=== PATIENT | female | born 1975 | race Caucasian/White ===

== ENCOUNTER 2021-11-28 14:17 | Inpatient (IN) | payer OTHER, SELFPAY ==
[2021-11-28] VITALS (11 sets, daily range): BP systolic 122–149; BP diastolic 77–100; PULSE 64–97; RESP 13–24; TEMP 36.8–36.9; O2SAT 88–96; BMI 48.2; BMI 50.3
--- NOTE | 2021-11-28 14:24 | ECG_ITS ---
APPROVED REPORT Exam: Resting ECG HR:92 bpm ECG Measurements Heart Rate 92 AXES VA 177 P 53 QRSd 88 QRS 12 QT 326 T 47 QTc 376 Conclusion SINUS RHYTHM LOW QRS VOLTAGE IN PRECORDIAL LEADS [QRS DEFLECTION < 1.0 mV IN CHEST LEADS] Late r wave progression BORDERLINE ECG UNCONFIRMED REPORT Electronically signed by : See Page MD 11/28/2021 20:09:52
--- NOTE | 2021-11-28 14:28 | PC.NURSE ---
ED MD at
--- NOTE | 2021-11-28 14:31 | XR_ITS ---
PROCEDURE INFORMATION: Exam: XR Chest Exam date and time: 11/28/2021 2:38 PM Age: 46 years old Clinical indication: Cough TECHNIQUE: Imaging protocol: XR of the chest. Views: 1 view. COMPARISON: No relevant prior studies available. FINDINGS: Subtle bilateral perihilar streak like opacifications are appreciated. Faint ground-glass opacities in the right lung base. Haziness in the left lung is most probably related to superimposition of structures. Remainder of the lungs are clear. No large pleural effusions or pneumothorax. Severe cardiomegaly. Patent central airways. No acute skeletal abnormality or aggressive osseous lesions. IMPRESSION: Vascular congestion with concern for early pulmonary edema or atypical pneumonia.
--- NOTE | 2021-11-28 14:45 | PC.NURSE ---
RESP CALLED FOR ABG
--- NOTE | 2021-11-28 14:50 | PC.NURSE ---
RT At BS
--- NOTE | 2021-11-28 14:57 | HMH.EDSOB ---
ED Disposition Clinical Impression: Acute respiratory failure with hypoxia Community acquired pneumonia Qualifiers: Laterality: unspecified laterality Qualified Code(s): J18.9 - Pneumonia, unspecified organism Disposition: Admitted As Inpatient Condition on Discharge: Fair Referrals: Thom Hatch RN [Primary Care Provider] - - Critical Care Critical Care Time: No Attestation: On 11/28/21, the high probability of a clinically significant, sudden or life threatening deterioration of the following system(s) required my full and direct attention, intervention and personal management. The time I documented below is in addition to time spent performing reported procedures but includes the following listed in this critical care notation. Medical Decision Making - Medical Records Medical records reviewed: Yes: I reviewed the patient's medical records. - Xavier Inquiry Pt receiving controlled substance: No Vital Signs: 11/28/21 14:17 11/28/21 14:30 11/28/21 15:00 Temperature 98.3 F Temperature Source Oral Pulse Rate 91 H 93 H Pulse Rate [Left Radial] 97 H Respiratory Rate 24 16 13 Blood Pressure 131/83 136/83 Blood Pressure [Right Arm] 149/100 H Blood Pressure Mean [Right Arm] 116 Blood Pressure Source Automatic Cuff Automatic Cuff Blood Pressure Source [Right Arm] Automatic Cuff Blood Pressure Position Sitting Sitting Blood Pressure Position [Right Arm] Sitting 02 Sat by Pulse Oximetry 88 L 93 L 95 Oxygen Delivery Method Room Air Nasal Cannula Nasal Cannula Oxygen Flow Rate (LPM) 2 2 11/28/21 15:30 11/28/21 16:25 11/28/21 16:57 Temperature Temperature Source Pulse Rate 79 75 77 Pulse Rate [Left Radial] Respiratory Rate 23 22 21 Blood Pressure 127/83 122/82 134/96 H Blood Pressure [Right Arm] Blood Pressure Mean [Right Arm] Blood Pressure Source Automatic Cuff Automatic Cuff Automatic Cuff Blood Pressure Source [Right Arm] Blood Pressure Position Sitting Supine Supine Blood Pressure Position [Right Arm] 02 Sat by Pulse Oximetry 94 L 93 L 95 Oxygen Delivery Method Nasal Cannula Room Air Room Air Oxygen Flow Rate (LPM) 2 11/28/21 17:14 Temperature Temperature Source Pulse Rate 83 Pulse Rate [Left Radial] Respiratory Rate Blood Pressure Blood Pressure [Right Arm] Blood Pressure Mean [Right Arm] Blood Pressure Source Blood Pressure Source [Right Arm] Blood Pressure Position Blood Pressure Position [Right Arm] 02 Sat by Pulse Oximetry Oxygen Delivery Method Oxygen Flow Rate (LPM) - Lab Data Lab Results 11/28/21 14:40: PT 10.9, INR 0.96, APTT 20.8 L 11/28/21 14:40: Sodium 141, Potassium 3.9, Chloride 104, Carbon Dioxide 31 H, Anion Gap 9.9, BUN 13, Creatinine 0.70, Estimated Creat Clear 74, Estimated GFR 89, Est GFR ( Amer) 108, Glucose 109 H, Calcium 9.3, Total Bilirubin 0.9, AST 61 H, ALT 70, Alkaline Phosphatase 118, Troponin I < 0.01, NT-Pro-B Natriuret Pep 41.9, Total Protein 7.4, Albumin 4.3, Globulin 3.1, Albumin/Globulin Ratio 1.4, TSH 3.28 11/28/21 14:56: Specimen Source Left radial, O2 % 2 lnc, ABG pH 7.40, ABG pCO2 47.8 H, ABG pO2 101.1 H, ABG HCO3 28.6 H, ABG Total CO2 30.1 H, ABG O2 Saturation 98, ABG Base Excess 3.7 H, Mike Test Acceptable 11/28/21 15:03: WBC 7.7, RBC 4.55, Hgb 13.8, Hct 43.2, MCV 95.1, MCH 30.4, MCHC 32.0, RDW 14.0, Plt Count 274, MPV 8.7, Neut % (Auto) 62.5, Lymph % (Auto) 27.3, [place] % (Auto) 4.7, Eos % (Auto) 3.0, Baso % (Auto) 2.4 H, Neut # (Auto) 4.8, Lymph # (Auto) 2.1, [place] # (Auto) 0.4, Eos # (Auto) 0.2, Baso # (Auto) 0.2 11/28/21 15:38: Lactate 1.6 11/28/21 15:38: SARS-CoV-2 (PCR) Not detected, Influenza A Untype (PCR) Not detected, Influenza Type B (PCR) Not detected Result diagrams: 11/28/21 15:03 11/28/21 14:40 Orders (Tests/Meds): ED MEDICATIONS Generic Name Dose Route Start Last Admin Trade Name Freq PRN Reason Stop Dose Admin Ceftriaxone Sodium 1 gm/ 50 mls @ 100 mls/hr
[2021-11-28 14:59] LABS: ABG Base Excess 3.7 mmol/L (-2.4-2.3); ABG HCO3 28.6 mmhg (22.0-26.0); ABG Oxygen Saturation 98 % (90-100); ABG PCO2 47.8 mmhg (35.0-45.0); ABG PO2 101.1 mmhg (80-100); ABG TCO2 30.1 mmhg (23-27); Allen's Test Acceptable; Oxygen 2 LNC %
[2021-11-28 14:59] LABS: Chloride 104 mmol/L (98-107); Potassium 3.9 mmoL/L (3.5-5.1); Sodium 141 mmol/L (136-145)
[2021-11-28 15:00] LABS: Source Left Radial
[2021-11-28 15:02] LABS: Alanine Aminotransferase 70 U/L (12-78); Albumin Level 4.3 g/dl (3.5-5.0); Albumin/Globulin Ratio 1.4 (1.1-1.8); Alkaline Phosphatase 118 U/L (38-126); Anion Gap 9.9 mEq/L (5-15); Aspartate Amino Transferase 61 U/L (14-36); Bilirubin,Total 0.9 mg/dl (0.2-1.3); Blood Urea Nitrogen 13 mg/dl (7-17); Carbon Dioxide 31 mmol/L (22.0-30.0); Creatinine Clearance Estimated 74 mL/min (50-200); Estimated Glomerular Filt Rate 89 ml/min (>60); GFR (African American) 108 ML/MIN (>60); Globulin 3.1 g/dL (1.3-3.2); Total Protein,Serum 7.4 g/dl (6.3-8.2)
[2021-11-28 15:03] LABS: Calcium 9.3 mg/dl (8.4-10.2); Glucose 109 mg/dl (74-100)
[2021-11-28 15:12] LABS: NT Pro Brain Natriuretic Pep. 41.9 pg/mL (0-125)
[2021-11-28 15:18] LABS: Troponin I < 0.01 ng/ml (0.00-0.034)
[2021-11-28 15:23] LABS: Basophils # 0.2 K/mm3 (0-0.2); Basophils % 2.4 % (0.1-2.0); Eosinophils # 0.2 K/mm3 (0.0-0.4); Hematocrit 43.2 % (37.0-47.0); Hemoglobin 13.8 g/dL (12.2-16.2); Lymphocytes # 2.1 K/mm3 (0.7-4.5); Lymphocytes % 27.3 % (10-50); Mean Corpuscular Hemoglobin 30.4 pg (27.0-31.2); Mean Corpuscular Volume 95.1 fl (81-99); Mean Platelet Volume 8.7 fl (7.4-10.4); Monocytes # 0.4 K/mm3 (0.1-1.0); Monocytes % 4.7 % (1.7-9.3); Neutrophils # 4.8 K/mm3 (1.8-7.8); Neutrophils % 62.5 % (37.0-80.0); Platelet Count 274 K/mm3 (142-424); Red Blood Count 4.55 M/mm3 (4.20-5.40); White Blood Count 7.7 K/mm3 (4.8-10.8)
[2021-11-28 15:26] LABS: Activated Partial Thrombo Time 20.8 seconds (22.8-30.6); INR 0.96 (0.9-1.1); Prothrombin Time 10.9 seconds (10.1-12.5)
[2021-11-28 15:33] LABS: Thyroid Stimulating Hormone 3.28 uIU/mL (0.465-4.68)
--- NOTE | 2021-11-28 15:39 | PC.NURSE ---
Lactic and Covid swab sent to lab
[2021-11-28 15:46] LABS: Coronavirus 19, PCR Not Detected (NotDetected); Influenza A, PCR Not Detected (NotDetected); Influenza B, PCR Not Detected (NotDetected)
[2021-11-28 15:54] LABS: Lactic Acid 1.6 mmol/L (0.7-2.1)
--- NOTE | 2021-11-28 17:45 | PC.NURSE ---
paged for pt
--- NOTE | 2021-11-28 18:13 | PC.NURSE ---
Contacted for bed assignment
--- NOTE | 2021-11-28 18:42 | PC.NURSE ---
attempted to call back for report at [phone] staff unavailable at this time, will return call.
--- NOTE | 2021-11-28 18:54 | PC.NURSE ---
report called to Debbie Camacho RN
--- NOTE | 2021-11-28 18:55 | PC.NURSE ---
received report at this time.
--- NOTE | 2021-11-28 18:58 | PC.NURSE ---
Updated pt about poc
[2021-11-28 19:22] LABS: Troponin I < 0.01 ng/ml (0.00-0.034)
--- NOTE | 2021-11-28 19:31 | PC.NURSE ---
pt arrived to floor from ed @ 1930
[2021-11-28 23:04] LABS: Troponin I < 0.01 ng/ml (0.00-0.034)
[2021-11-29] VITALS (15 sets, daily range): BP systolic 100–139; BP diastolic 55–92; PULSE 69–85; RESP 14–20; TEMP 36.5–37; O2SAT 92–97
--- NOTE | 2021-11-29 04:23 | PC.NURSE ---
No acute changes this shift. Pt is currently on 2L O2 NC. No complaints stated. Pt has ambulated to BR without any difficulty with standby assist while on O2. VSS. Medications administered per mar. Will continue to monitor.
[2021-11-29 05:58] LABS: Basophils # 0.1 K/mm3 (0-0.2); Basophils % 0.9 % (0.1-2.0); Eosinophils # 0.3 K/mm3 (0.0-0.4); Eosinophils % 4.1 % (0.1-12.0); Hematocrit 42.9 % (37.0-47.0); Hemoglobin 13.6 g/dL (12.2-16.2); Lymphocytes # 1.6 K/mm3 (0.7-4.5); Lymphocytes % 23.8 % (10-50); Mean Corpuscular HGB Conc 31.7 g/dL (31.8-35.4); Mean Corpuscular Hemoglobin 30.9 pg (27.0-31.2); Mean Corpuscular Volume 97.5 fl (81-99); Mean Platelet Volume 8.9 fl (7.4-10.4); Monocytes # 0.4 K/mm3 (0.1-1.0); Monocytes % 6.2 % (1.7-9.3); Neutrophils # 4.5 K/mm3 (1.8-7.8); Platelet Count 267 K/mm3 (142-424); White Blood Count 6.9 K/mm3 (4.8-10.8)
[2021-11-29 06:19] LABS: Anion Gap 9.2 mEq/L (5-15); Blood Urea Nitrogen 10 mg/dl (7-17); Calcium 8.6 mg/dl (8.4-10.2); Carbon Dioxide 33 mmol/L (22.0-30.0); Chloride 102 mmol/L (98-107); Creatinine Clearance Estimated 65 mL/min (50-200); Estimated Glomerular Filt Rate 77 ml/min (>60); GFR (African American) 93 ML/MIN (>60); Glucose 102 mg/dl (74-100); Potassium 4.2 mmoL/L (3.5-5.1); Sodium 140 mmol/L (136-145)
--- NOTE | 2021-11-29 07:50 | P.CONPHA_ITS ---
[facility] Pharmacy VTE Monitoring - Patient Demographics Admission date: 11/29/21 Report Date: 11/29/21 Time: 07:50 Allergies/Adverse Reactions: Patient Allergies No Known Allergies Allergy (Unverified 11/29/21 07:39) Height: 1.55 m Weight: 120.882 kg Patient Problems: Current Active Problems Community acquired pneumonia (Acute) Acute respiratory failure with hypoxia (Acute) - VTE Risk Labs: VTE Related Lab Results Hgb 13.6 g/dL (12.2-16.2) 11/29/21 05:28 Hct 42.9 % (37.0-47.0) 11/29/21 05:28 Plt Count 267 K/mm3 (142-424) 11/29/21 05:28 PT 10.9 seconds (10.1-12.5) 11/28/21 14:40 INR 0.96 (0.9-1.1) 11/28/21 14:40 APTT 20.8 seconds (22.8-30.6) L 11/28/21 14:40 BUN 10 mg/dl (7-17) 11/29/21 05:28 Creatinine 0.80 mg/dl (0.52-1.04) 11/29/21 05:28 Estimated Creat Clear 65 mL/min (50-200) 11/29/21 05:28 Was VTE Risk Assessment Performed: Yes VTE Risk Level: Low Risk Clinical Trial Participant: No - Prophylaxis VTE Prophylaxis Ordered?: Yes Types of VTE Prophylaxis: TEDS Knee High, Pharmacological Pharmacologic Type: Enoxaparin
--- NOTE | 2021-11-29 08:19 | CA_ITS ---
APPROVED REPORT EXAM: Comprehensive 2D, Doppler, and color-flow Echocardiogram Manager Publishing: Arlette Padilla RVT Ht: 5 ft 1 in Wt: 266lbs BSA: 2.13 BP: 134/96 mmHg Indications: CARDIOMEGALY,SOA,PNEUMONIA,OBESITY TDS-PT BODY HABITUS LIMITED WINDOWS 2D Dimensions LVOT 2.13 cm (M/F) 1.5-2.5 M-Mode Dimensions RVDd 1.37 cm (0.9-2.6) LA Diam 2.99 cm (1.9-4.0) LVDd 3.83 cm (3.5-5.7) Ao Diam 2.86 cm (2.0-3.7) LVDs 2.09 cm (3.5-5.7) IVSd 1.90 cm (0.6-1.1) PWd 1.18 cm (0.6-1.1) EF (Teich) 77.50% FS 45.40% EDV (Teich) 63.10 mL ESV (Teich) 14.20 mL LV Diastology E Decel Time 150.00 (160-240 msec) E/A Ratio 1.6 MED E' 10.00 (< 7 cm/sec) E'/MED E' Ratio 11.61 (>14) LAT E' 8.90 (<10 cm/sec) E/LAT E' Ratio 13.04 (>14) Aortic Valve AO Peak GR. 7.70 mmHg Mitral Valve MV E Max Bashir. 116.00 (40-130 cm/s) MV A Velocity 72.00 (40-130 cm/s) E/A Ratio 1.61 MV Decel. Time 150.00 (160-240 ms) MV PHT 44.00 ms Pulmonary Valve PV Peak Velocity 82.00 (50-150 cm/s) Left Ventricle Technically difficult and poor study because of the patient factors and poor acoustic windows. Left atrium is mildly enlarged, left ventricle is normal size, estimated ejection fraction 55% with no regional wall motion abnormality, diastolic parameters are inconclusive. Right Ventricle Right atrium and right ventricle are mildly enlarged with normal contractility. Aortic Valve Aortic valve is minimally thickened and fibrosed there is no aortic stenosis or aortic insufficiency. Mitral Valve Mitral valve is grossly normal there is trace mitral regurgitation. Tricuspid Valve Tricuspid valve grossly normal, there is trace tricuspid regurgitation, tricuspid regurgitation jet velocity is inadequate for calculation of the right ventricular systolic pressure. Pulmonic Valve Pulmonic valve is poorly visualized. Great Vessels Aortic root is normal size. Inferior vena cava is poorly visualized. Pericardium No significant pericardial effusion noted. Conclusion 1. Normal left ventricular size with preserved left ventricular systolic function, estimated ejection fraction 55% with no regional wall motion abnormality, diastolic parameters are inconclusive. Technically difficult study because of the patient factors and poor acoustic windows. 2. Trace mitral and tricuspid regurgitation. 3. No significant pericardial effusion noted. 4. Inferior vena cava is poorly visualized. Electronically signed by : Alen Mcdonald MD 11/29/2021 11:53:43
--- NOTE | 2021-11-29 09:15 | HMH.HP ---
*Admission Date: 11/29/21 *Chief complaint: soa *History of present illness: 46-year-old female presented to the emergency department with shortness of breath since Monday. Pt states she has been battling with pneumonia for the last few months. Patient states since Monday she has been having worsening shortness of breath on exertion. She had a mild nonproductive cough. Denies any associated chest pain or palpitations. No fevers or chills. No headache or change in vision. No focal weakness. No abdominal pain or vomiting. Pt was admitted for pneumonia and CHF, for cardiology and pulmonology consults. [facility] History I have reviewed the patient's past medical history: Yes Medical History: Reports:: Hyperlipidemia, Hypertension *Have you ever received a pneumonia vaccine?: Yes *Have you received a flu vaccine this season?: No Other Surgeries: Yes: , Hysterectomy-Partial - *Social History Smoking Status: Current every day smoker Alcohol Intake: never *Occupational Status:: employed *Travel in the last 8 weeks: None Family Hx:: Asthma, Cancer, Diabetes, Heart Attack, Hyperlipidemia, Hypertension, Thyroid Disorder, Substance abuse, Alcoholism Review of Systems - Constitutional Denies body ache(s) - Eyes Denies blurry vision - ENT Denies difficulty swallowing - *Cardiovascular Reports shortness of breath with activity, Denies chest pain with activity - *Respiratory Reports cough, Reports shortness of breath with activity - *Gastrointestinal Denies belching - *Genitourinary Denies abnormal periods - *Musculoskeletal Denies joint pain - Integumentary/Breasts Denies rash - *Neurologic Denies headache(s) - Psychiatric Denies anxiety - Endocrine Denies flushing - Hematologic/Lymphatic Denies enlarged lymph nodes - Allergic/Immunologic Denies lip swelling Meds Home Medications Medication Instructions Recorded Confirmed Type Albuterol Sulfate [Proair 90 mcg IH Q6 PRN 11/28/21 11/28/21 History Digihaler] Escitalopram Oxalate [Lexapro] 10 mg PO DAILY 11/28/21 11/28/21 History Fluticasone Propion/Salmeterol 2 puffs IH BID 11/28/21 11/28/21 History [Advair Hfa 115-21 Mcg Inhaler] Levothyroxine Sodium [Synthroid 125 mcg PO DAILY 11/28/21 11/28/21 History 125mcg (0.125mg) tablet] Montelukast Sodium 10 mg PO HS 11/28/21 11/28/21 History lisinopriL [Lisinopril] 10 mg PO DAILY 11/28/21 11/28/21 History Allergies Allergy/AdvReac Type Severity Reaction Status Date / Time No Known Allergies Allergy Unverified 11/29/21 07:39 Exam Vital signs and Labs for Last 24 Hours: Temp Pulse Resp BP Pulse Ox 98.6 F 71 16 114/69 96 11/29/21 08:00 11/29/21 08:00 11/29/21 08:00 11/29/21 08:00 11/29/21 08:00 Laboratory Results - last 24 hr 11/28/21 14:40: PT 10.9, INR 0.96, APTT 20.8 L 11/28/21 14:40: Sodium 141, Potassium 3.9, Chloride 104, Carbon Dioxide 31 H, Anion Gap 9.9, BUN 13, Creatinine 0.70, Estimated Creat Clear 74, Estimated GFR 89, Est GFR ( Amer) 108, Glucose 109 H, Calcium 9.3, Total Bilirubin 0.9, AST 61 H, ALT 70, Alkaline Phosphatase 118, Troponin I < 0.01, NT-Pro-B Natriuret Pep 41.9, Total Protein 7.4, Albumin 4.3, Globulin 3.1, Albumin/Globulin Ratio 1.4, TSH 3.28 11/28/21 14:56: Specimen Source Left radial, O2 % 2 lnc, ABG pH 7.40, ABG pCO2 47.8 H, ABG pO2 101.1 H, ABG HCO3 28.6 H, ABG Total CO2 30.1 H, ABG O2 Saturation 98, ABG Base Excess 3.7 H, Mike Test Acceptable 11/28/21 15:03: WBC 7.7, RBC 4.55, Hgb 13.8, Hct 43.2, MCV 95.1, MCH 30.4, MCHC 32.0, RDW 14.0, Plt Count 274, MPV 8.7, Neut % (Auto) 62.5, Lymph % (Auto) 27.3, Teller % (Auto) 4.7, Eos % (Auto) 3.0, Baso % (Auto) 2.4 H, Neut # (Auto) 4.8, Lymph # (Auto) 2.1, Teller # (Auto) 0.4, Eos # (Auto) 0.2, Baso # (Auto) 0.2 11/28/21 15:38: Lactate 1.6 11/28/21 15:38: SARS-CoV-2 (PCR) Not detected, Influenza A Untype (PCR) Not detected, Influenza Type B (PCR) Not detected 11/28/21 18:45: Troponin
--- NOTE | 2021-11-29 09:23 | HMH.PULMCON ---
*Admission Date: 11/29/21 *Reason for consult:: Acute hypoxic respiratory failure *History of present illness: Ms. Partida is a 46-year-old female history of asthma currently on Advair HFA 110 at home along with albuterol on as-needed basis, no recent known exacerbations presented to the clinic with worsening respiratory distress with cough and productive phlegm and pulmonary was called for further management. He also states that she explained episode of pneumonia in May and since then her respiratory status never returned to baseline. Not using any oxygen at home [facility] History Medical History: Reports:: Hyperlipidemia, Hypertension *Have you ever received a pneumonia vaccine?: Yes *Have you received a flu vaccine this season?: No Other Surgeries: Yes: , Hysterectomy-Partial - *Social History Last grade of school completed: Some college Smoking Status: Smoker, status unknown Alcohol Intake: never Alcohol Intake Frequency:: other Substance Use Type: other *Occupational Status:: employed *Travel in the last 8 weeks: None Family Hx:: Asthma, Cancer, Diabetes, Heart Attack, Hyperlipidemia, Hypertension, Thyroid Disorder, Substance abuse, Alcoholism ROS - Cons Reports chills - Eyes Denies change in vision - ENT Denies bleeding gums - Card Reports shortness of breath, Reports shortness of breath with activity - Resp Respiratory: Reports change in phlegm color, Reports chest congestion, Reports cough, Reports dyspnea on exertion, Reports excessive phlegm production - GI Gastrointestingal: Denies: abdominal pain - [place] Musculoskeletal: Denies back pain - Psych Denies thoughts of hurting/killing others, Denies thoughts of hurting/killing yourself Meds Home Medications Medication Instructions Recorded Confirmed Type Albuterol Sulfate [Proair 90 mcg IH Q6 PRN 11/28/21 11/28/21 History Digihaler] Escitalopram Oxalate [Lexapro] 10 mg PO DAILY 11/28/21 11/28/21 History Fluticasone Propion/Salmeterol 2 puffs IH BID 11/28/21 11/28/21 History [Advair Hfa 115-21 Mcg Inhaler] Levothyroxine Sodium [Synthroid 125 mcg PO DAILY 11/28/21 11/28/21 History 125mcg (0.125mg) tablet] Montelukast Sodium 10 mg PO HS 11/28/21 11/28/21 History lisinopriL [Lisinopril] 10 mg PO DAILY 11/28/21 11/28/21 History Budesonide [Pulmicort 0.5mg/2mL 0.5 mg IH BIDRT 30 Days #120 each 11/30/21 Rx neb] levoFLOXacin [Levofloxacin 750MG 750 mg PO DAILY 6 Days #6 tab 11/30/21 Rx Tablet*] predniSONE [Prednisone 20mg 40 mg PO DAILY 18 Days #36 tab 11/30/21 Rx Tab] Allergies Allergy/AdvReac Type Severity Reaction Status Date / Time No Known Allergies Allergy Unverified 11/29/21 07:39 Exam - Constitutional Constitutional:: Present: no acute distress. Absent: comfortable - HENMT Exam HENMT: Present: normocephalic - Eye Exam Eyes:: Present: normal appearance both eyes and related structures - Neck Exam Neck:: Present: normal visual inspection - Respiratory Exam Respiratory:: Present: able to speak in complete sentences, no respiratory distress, wheezing. Absent: crackles - Cardiovascular Exam Cardiac:: Present: S1, S2 - GI Exam GI:: Present: soft - Skin Exam Skin: Present: warm - Neurological Exam Neurological: Present: alert, awake - Extremities Exam Extremities: Present: no cyanosis, no clubbing, no edema - Psychiatric Exam Psychiatric: Present: affect normal Internal Medicine - CN: Reslt - Labs CBC & Chem 7: 11/29/21 05:28 11/29/21 05:28 Labs: Short CBC 11/28/21 11/29/21 Range/Units 15:03 05:28 WBC 7.7 6.9 (4.8-10.8) K/mm3 Hgb 13.8 13.6 (12.2-16.2) g/dL Hct 43.2 42.9 (37.0-47.0) % Plt Count 274 267 (142-424) K/mm3 BMP 11/28/21 11/29/21 14:40 05:28 Sodium 141 140 Potassium 3.9 4.2 Chloride 104 102 Carbon Dioxide 31 H 33 H BUN 13 10 Creatinine 0.70 0.80 Glucose 109 H 102 H Calcium 9.3 8.6 Cardiac Enzy
--- NOTE | 2021-11-29 09:38 | HMH.PHAINT ---
VERIFIED HOME MEDICATION LIST USING WITH PATIENT AND LIST FROM [facility]
--- NOTE | 2021-11-29 11:01 | CT_ITS ---
FINAL REPORT TECHNIQUE: Then section axial CT images of the chest were obtained with contrast. Three-D reformatted images were also obtained.This study was performed with techniques to keep radiation doses as low as reasonably achievable (ALARA). Individualized dose reduction techniques using automated exposure control or adjustment of mA and/or kV according to the patient''s size were employed. CLINICAL HISTORY: Hypoxia FINDINGS: There is no evidence of pulmonary embolism. There is no evidence of thoracic aortic aneurysm or dissection. There is no evidence of mediastinal or hilar mass or adenopathy. There is no evidence of pulmonary mass or suspicious nodule. There are widespread ground-glass opacities, may represent edema. There is mild right base atelectasis and small right effusion. Limited images of the upper abdomen are unremarkable. IMPRESSION: No evidence of pulmonary embolism. Widespread ground-glass opacities, may represent edema. Right base atelectasis and small right effusion. Reviewed, Interpreted and Dictated by Shin Leahy III, MD Transcribed by Adriana Hill Authenticated by Shin eLahy III, MD on 11/29/2021 02:01:[address] [facility]
[2021-11-29 11:12] LABS: Adenovirus,PCR Not Detected (NotDetected); Bordetella Pertussis Not Detected (NotDetected); Chlamydophila Pneumoniae, PCR Not Detected (NotDetected); Coronavirus 229E Not Detected (NotDetected); Coronavirus NL63 Not Detected (NotDetected); Coronavirus OC43 Not Detected (NotDetected); Coronovirus HKU1,PCR Not Detected (NotDetected); Human Metapneumovirus Not Detected (NotDetected); Influenza A, PCR Not Detected (NotDetected); Influenza AH1, 2009 Not Detected (NotDetected); Influenza AH1, PCR Not Detected (NotDetected); Influenza AH3,PCR Not Detected (NotDetected); Influenza B, PCR Not Detected (NotDetected); Mycoplasma Pneumoniae, PCR Not Detected (NotDetected); Parainfluenza 1, PCR Not Detected (NotDetected); Parainfluenza 2, PCR Not Detected (NotDetected); Parainfluenza 3, PCR Not Detected (NotDetected); Parainfluenza 4, PCR Not Detected (NotDetected); Respiratory Syncytial Virus Not Detected (NotDetected); Rhinovirus/Enterovirus Not Detected (NotDetected)
--- NOTE | 2021-11-29 11:30 | XR_ITS ---
FINAL REPORT CLINICAL HISTORY: pulmonary edema, infiltrate, cardiomegaly COMPARISON: 12/07/2021 FINDINGS: TWO-VIEW CHEST The heart size is normal. The mediastinum is normal. There are pulmonary opacities, may represent edema or pneumonia. There is no pneumothorax. IMPRESSION: Pulmonary opacities, may represent edema or pneumonia. Reviewed, Interpreted and Dictated by Shin Leahy III, MD Transcribed by Adriana Hill Authenticated by Shin Leahy III, MD on 11/29/2021 02:01:[address] [facility]
--- NOTE | 2021-11-29 11:31 | HMH.CNCARD ---
History of Present Illness Consult date: 11/29/21 Requesting physician: Glenn Ty Consult reason: shortness of breath Chief complaint: SOA Additional Medical History:: 1. Hypertension, treated for about 5 years 2. Hyperlipidemia, treated for 1 to 2 years 3. Obesity 4. History of COVID infection, July 2021 5. History of pneumonia, 05/2021 6. Possible cardiomegaly on chest x-ray, 11/28/2021 A. Echocardiogram, 11/29/2021, official report pending but ejection fraction estimated about 60% History of present illness: 46-year-old white female admitted through the ER for increasing shortness of breath over the last few days with hypoxia on room air in the ER. Patient has been treated with supplemental oxygen and started on antibiotic therapy with pulmonary consulted. Patient has recently had a sleep study and is awaiting results of that test. Chest x-ray (portable) was read as showing severe cardiomegaly and cardiology was consulted for evaluation. Preliminary echocardiogram shows preserved ejection fraction. Official report is pending. Patient denies any cardiac history except for hypertension. EKG is sinus rhythm with low voltage and poor R wave progression anteriorly. [facility] History Medical History: Reports:: Hyperlipidemia, Hypertension *Have you ever received a pneumonia vaccine?: Yes *Have you received a flu vaccine this season?: No Other Surgeries: Yes: , Hysterectomy-Partial - *Social History Smoking Status: Never smoker Alcohol Intake: never *Occupational Status:: employed *Travel in the last 8 weeks: None Family Hx:: Asthma, Cancer, Diabetes, Heart Attack, Hyperlipidemia, Hypertension, Thyroid Disorder, Substance abuse, Alcoholism Meds Home Medications Medication Instructions Recorded Confirmed Type Albuterol Sulfate [Proair 90 mcg IH Q6 PRN 11/28/21 11/28/21 History Digihaler] Escitalopram Oxalate [Lexapro] 10 mg PO DAILY 11/28/21 11/28/21 History Fluticasone Propion/Salmeterol 2 puffs IH BID 11/28/21 11/28/21 History [Advair Hfa 115-21 Mcg Inhaler] Levothyroxine Sodium [Synthroid 125 mcg PO DAILY 11/28/21 11/28/21 History 125mcg (0.125mg) tablet] Montelukast Sodium 10 mg PO HS 11/28/21 11/28/21 History lisinopriL [Lisinopril] 10 mg PO DAILY 11/28/21 11/28/21 History Allergies Allergy/AdvReac Type Severity Reaction Status Date / Time No Known Allergies Allergy Unverified 11/29/21 07:39 Exam Vital signs and Labs for Last 24 Hours: Temp Pulse Resp BP Pulse Ox 98.6 F 85 20 114/69 96 11/29/21 08:00 11/29/21 09:15 11/29/21 09:15 11/29/21 08:00 11/29/21 08:00 Laboratory Results - last 24 hr 11/28/21 14:40: PT 10.9, INR 0.96, APTT 20.8 L 11/28/21 14:40: Sodium 141, Potassium 3.9, Chloride 104, Carbon Dioxide 31 H, Anion Gap 9.9, BUN 13, Creatinine 0.70, Estimated Creat Clear 74, Estimated GFR 89, Est GFR ( Amer) 108, Glucose 109 H, Calcium 9.3, Total Bilirubin 0.9, AST 61 H, ALT 70, Alkaline Phosphatase 118, Troponin I < 0.01, NT-Pro-B Natriuret Pep 41.9, Total Protein 7.4, Albumin 4.3, Globulin 3.1, Albumin/Globulin Ratio 1.4, TSH 3.28 11/28/21 14:56: Specimen Source Left radial, O2 % 2 lnc, ABG pH 7.40, ABG pCO2 47.8 H, ABG pO2 101.1 H, ABG HCO3 28.6 H, ABG Total CO2 30.1 H, ABG O2 Saturation 98, ABG Base Excess 3.7 H, Mike Test Acceptable 11/28/21 15:03: WBC 7.7, RBC 4.55, Hgb 13.8, Hct 43.2, MCV 95.1, MCH 30.4, MCHC 32.0, RDW 14.0, Plt Count 274, MPV 8.7, Neut % (Auto) 62.5, Lymph % (Auto) 27.3, Weber % (Auto) 4.7, Eos % (Auto) 3.0, Baso % (Auto) 2.4 H, Neut # (Auto) 4.8, Lymph # (Auto) 2.1, Weber # (Auto) 0.4, Eos # (Auto) 0.2, Baso # (Auto) 0.2 11/28/21 15:38: Lactate 1.6 11/28/21 15:38: SARS-CoV-2 (PCR) Not detected, Influenza A Untype (PCR) Not detected, Influenza Type B (PCR) Not detected 11/28/21 18:45: Troponin I < 0.01 11/28/21 21:43: Troponin I < 0.01 11/29/21 05:28: WBC 6.9, RBC 4.40, Hgb 13.6, Hct 42.9, MCV 97.5, MCH 30.9, MCHC 31.7 L, RDW 14.0, P
[2021-11-30] VITALS: BP 114/61; PULSE 73; PULSE 78; RESP 20; TEMP 36.7; O2SAT 93
--- NOTE | 2021-11-30 01:11 | PC.NURSE ---
pt's sats decreased into 50's with a good pleth on monitor, entered pt's room and woke pt up, sats went back to 96%; asked pt if had sleep apnea and pt said haven't been diagnosed, but recently had sleep study and haven't gotten results yet so probably ; pt has been on 2LNC throughout shift
[2021-11-30 04:00] VITALS: BP 120/81; PULSE 77; PULSE 83; RESP 17; TEMP 36.6; O2SAT 93
[2021-11-30 05:00] VITALS: BMI 50.3
[2021-11-30 06:04] VITALS: PULSE 72; PULSE 76; O2SAT 92
[2021-11-30 08:00] VITALS: BP 112/71; PULSE 73; RESP 16; TEMP 36.6; O2SAT 93
--- NOTE | 2021-11-30 10:20 | HMH.PULMPN ---
Internal Medicine - PN: Subj *Date: 11/30/21 *Time: 10:20 Interval history: No acute respiratory vents overnight. Patient admits improvement in her symptoms Exam - Constitutional Constitutional:: Present: no acute distress, comfortable - HENMT Exam HENMT: Present: normocephalic - Eye Exam Eyes:: Present: normal appearance both eyes and related structures - Neck Exam Neck:: Present: normal visual inspection - Respiratory Exam Respiratory:: Present: able to speak in complete sentences, no respiratory distress. Absent: wheezing - Cardiovascular Exam Cardiac:: Present: S1, S2 - GI Exam GI:: Present: soft - Skin Exam Skin: Present: warm, no rash - Neurological Exam Neurological: Present: alert, awake, normal cognition - Extremities Exam Extremities: Present: no cyanosis, no clubbing, no edema Assessment and Plan (1) Acute diastolic (congestive) heart failure Status: Acute Category: Medical Code(s): I50.31 - Acute diastolic (congestive) heart failure (2) Acute respiratory failure with hypoxia Status: Acute Category: Medical Code(s): J96.01 - Acute respiratory failure with hypoxia (3) Community acquired pneumonia Status: Acute Qualifiers: Laterality: unspecified laterality Qualified Code(s): J18.9 - Pneumonia, unspecified organism Category: Medical Code(s): J18.9 - Pneumonia, unspecified organism (4) Hyperlipidemia Status: Acute Category: Medical Code(s): E78.5 - Hyperlipidemia, unspecified (5) Hypertension Status: Acute Category: Medical Code(s): I10 - Essential (primary) hypertension (6) Morbid obesity with BMI of 50.0-59.9, adult Status: Acute Category: Medical Code(s): E66.01 - Morbid (severe) obesity due to excess calories; Z68.43 - Body mass index [BMI] 50.0-59.9, adult - Assessment and plan all Dx Assessment and Plan for all problems:: #Acute hypoxic respiratory failure: #Community-acquired pneumonia: #Atypical pneumonia 46-year-old history of asthma presented worsening respiratory distress. Also concern for sleep apnea recently had a polysomnography testing done ABG on admission no hypoxia, compensated hypercarbia. 7.40, 47.8 and 101.1. No evidence of leukocytosis. Renal function normal. Chest x-ray concerning for light lower lobe pulmonary infiltrate along with hilar adenopathy. Also noted bilateral diffuse patchy/nodular opacities BNP within normal limits. COVID-19 and flu PCR normal. Patient has been initiated on ceftriaxone and doxycycline on admission. Interval update: CTA did not show any evidence of pulmonary embolism, no dense consolidation or effusions are mediastinal/hilar adenopathy. Showed bilateral diffuse groundglass opacities. Echocardiogram EF within normal limits, concern for diastolic dysfunction. Comprehensive respiratory viral panel negative. Auscultation significantly improved with breathing treatments. Continue to remain on 2 L nasal. Plan: -Initiate prednisone 40 mg daily x 14 days. F/U in 10 days in Pulmonary clinic -Continue nasal cannula oxygen supplementation to maintain O2 saturation goal of 89% and above -Continue DuoNebs every 6 hours along with budesonide every 12 scheduled. -Continue ceftriaxone and doxycycline, can be weaned to levofloxacin upon discharge. Sputum less than 10 WBC -Cardiology following receiving IV diuresis this morning. Thank you for involving pulmonary in this patient care. Please arrange home nebulizer prior to discharge. We will follow the patient in pulmonary clinic in 10 days post discharge. We will continue to follow.
--- NOTE | 2021-11-30 10:27 | [facility].PNCARD ---
Subjective Date: 11/30/21 Time: 09:30 Principal diagnosis: SOA Interval history: 46-year-old white female in no acute distress. Sitting in bedside chair initially sleeping. Repeat chest x-ray yesterday showed no evidence of cardiomegaly. CTA of the chest showed no evidence of pulmonary embolus but groundglass opacities noted throughout. Lasix IV was given yesterday with improvement in the patient's shortness of breath. Exam Vital signs and Labs for Last 24 Hours: Temp Pulse Resp BP Pulse Ox 97.9 F 73 16 112/71 93 L 11/30/21 08:00 11/30/21 08:00 11/30/21 08:00 11/30/21 08:00 11/30/21 08:00 Laboratory Results - last 24 hr 11/29/21 11:07: Chlamy pneumoniae PCR Not detected, Adenovirus (PCR) Not detected, B. pertussis DNA (PCR) Not detected, Coronavirus OC43 (PCR) Not detected, Coronavirus HKU1 (PCR) Not detected, Coronavirus 229E (PCR) Not detected, Coronavirus NL63 (PCR) Not detected, Human Metapneumovir PCR Not detected, Influenza A (H1) PCR Not detected, Influ A (H1N1/09) PCR Not detected, Influenza A (H3) PCR Not detected, Influenza Type A (PCR) Not detected, Influenza Type B (PCR) Not detected, M. pneumoniae (PCR) Not detected, Parainfluenza 1 (PCR) Not detected, Parainfluenza 2 (PCR) Not detected, Parainfluenza 3 (PCR) Not detected, Parainfluenza 4 (PCR) Not detected, RSV (PCR) Not detected, Entero/Rhino (PCR) Not detected I & O for Last 24 hours: Intake & Output 11/27/21 11/28/21 11/29/21 11/30/21 11:59 11:59 11:59 11:59 Intake Total 240 / 240 2688 / 2688 Output Total 0 / 0 1000 / 1000 Balance 240 / 240 1688 / 1688 Weight 266 lb 8 oz 266 lb 7.987 oz Microbiology Reports for the Last 24 Hours: Microbiology 11/29/21 12:45 Sputum - Expectorated Sputum Gram Stain - Final - Constitutional no acute distress - *Routine HEENT Exam Head: Present: normocephalic Eye: Present: EOMI, PERRL ENT: Present: mucous membranes moist - *Routine Neck Exam Present: supple. Absent: lymphadenopathy - *Routine Respiratory Exam Present: CTA bilaterally - *Routine Cardiovascular Exam Present: RRR - *Routine Abdominal Exam Present: soft, normoactive bowel sounds. Absent: tenderness - *Routine Extremities Exam Absent: cyanosis, clubbing, edema - *Routine Skin Exam Present: warm. Absent: rash - *Routine Neurological Exam Present: alert, oriented X3 Progress Note: A&P (1) Acute diastolic (congestive) heart failure Status: Acute (2) Acute respiratory failure with hypoxia Status: Acute (3) Community acquired pneumonia Status: Acute (4) Hyperlipidemia Status: Acute (5) Hypertension Status: Acute (6) Morbid obesity with BMI of 50.0-59.9, adult Status: Acute Assessment and Plan for All Diagnoses:: 1. Acute respiratory failure, hypoxia, pneumonia, on antibiotics. Defer to PCP and pulmonary. 2. Possible cardiomegaly on chest x-ray. Repeat non-Portable chest x-ray showed normal cardiac size. 3. Suspected diastolic congestive heart failure. Repeat IV Lasix today. Lisinopril not restarted at this time. Continue to monitor BP for now. 3. Hypertension, controlled at this time off lisinopril. 4. Hyperlipidemia, continue home dose of statin therapy. If patient felt stable for discharge by primary team then would recommend holding lisinopril and monitoring blood pressure at home while giving low-dose Lasix 20 mg and potassium 10 meq daily with BMP in 1 week.
--- NOTE | 2021-11-30 10:33 | HMH.DCSUM ---
General - General Admission date:: 11/28/21 Discharge date: 11/30/21 HPI HPI: 46-year-old female presented to the emergency department with shortness of breath since Monday. Pt states she has been battling with pneumonia for the last few months. Patient states since Monday she has been having worsening shortness of breath on exertion. She had a mild nonproductive cough. Denies any associated chest pain or palpitations. No fevers or chills. No headache or change in vision. No focal weakness. No abdominal pain or vomiting. Pt was admitted for pneumonia and CHF, for cardiology and pulmonology consults. Hospital Course Hospital Course: Cardiology has seen and recommended: 1. Acute respiratory failure, hypoxia, pneumonia, on antibiotics. Defer to PCP and pulmonary. 2. Possible cardiomegaly on chest x-ray, will repeat two-view nonportable chest x-ray for reevaluation. Suspect the patient has an element of diastolic congestive heart failure. We will give a dose of IV Lasix today and assess response. Official echo report is pending, but preliminary shows preserved ejection fraction. I have encouraged weight loss and treatment of her suspected SHARON. 3. Hypertension, controlled at this time. Recommend resuming home dose of lisinopril. 4. Hyperlipidemia, continue home dose of statin therapy. Pulmonary has seen and recommended: Patient has been initiated on ceftriaxone and doxycycline on admission. Interval update: CTA did not show any evidence of pulmonary embolism, no dense consolidation or effusions are mediastinal/hilar adenopathy. Showed bilateral diffuse groundglass opacities. Echocardiogram EF within normal limits, concern for diastolic dysfunction. Comprehensive respiratory viral panel negative. Auscultation significantly improved with breathing treatments. Continue to remain on 2 L nasal. Plan: -Initiate prednisone 40 mg daily x 14 days. F/U in 10 days in Pulmonary clinic -Continue nasal cannula oxygen supplementation to maintain O2 saturation goal of 89% and above -Continue DuoNebs every 6 hours along with budesonide every 12 scheduled. -Continue ceftriaxone and doxycycline, can be weaned to levofloxacin upon discharge. Sputum less than 10 WBC -Cardiology following receiving IV diuresis this morning. Thank you for involving pulmonary in this patient care. Please arrange home nebulizer prior to discharge. We will follow the patient in pulmonary clinic in 10 days post discharge. We will continue to follow. (1) Acute diastolic (congestive) heart failure Has received Lasix IV in the hospital and diuresed appropriately Echocardiogram revealed EF of 55% with possible diastolic heart failure (2) Acute respiratory failure with hypoxia She has received IV steroids, breathing treatments consisting of duo nebs, and budesonide while in the hospital as well as requiring oxygen and will be discharged on home O2. And we will arrange home nebulizer (3) Community acquired pneumonia During her stay she received ceftriaxone and doxycycline IV, she will be discharged on Levofloxacin and prednisone P.O. CTA of chest revealed no pulmonary embolism but did show bilateral diffuse ground glass opacities. Respiratory PCR negative (5) Hypertension She will resume her home dose of lisinopril (6) Morbid obesity with BMI of 50.0-59.9, adult Better food options/portions and exercise discussed as well as healthier food substitutions PLAN: 1. We will discharge home today 2. Levofloxacin x6 days 3. Prednisone x14 days Objective Vital signs: Temp Pulse Resp BP Pulse Ox 97.9 F 73 16 112/71 93 L 11/30/21 08:00 11/30/21 08:00 11/30/21 08:00 11/30/21 08:00 11/30/21 08:00 no acute distress, obese - *Routine HEENT Exam Head: Present: normocephalic Eye: Present: EOMI ENT: Present: mucous membranes moist - *Routine Neck Exam Present: trachea midline. Absent: tracheal deviation - *Routi
--- NOTE | 2021-11-30 10:41 | PC.NURSE ---
RA sat 86%.
[2021-11-30 10:42] VITALS: PULSE 82; PULSE 89; O2SAT 86
--- NOTE | 2021-12-01 16:41 | CARE MANAGER ---
Spoke with patient for follow-up phone interview. Patient states that she is much better and has no acute needs. Patient did not have the number to Dr. Yepez office for follow-up appointment so I did give patient number to call. No further needs at this time.
[2021-12-06 12:53] LABS: Aspergillus fumigatus IgG Negative (Negative); Pigeon Serum Abs Negative (Negative)
[2021-12-08 01:08] LABS: D001-IgE D pteronyssinus <0.10 kU/L (Class 0); D002-IgE D farinae <0.10 kU/L (Class 0); E001-IgE Cat Dander 3.27 kU/L (Class III); E005-IgE Dog Dander 0.42 kU/L (Class I); E072-IgE Mouse Urine <0.10 kU/L (Class 0); G002-IgE Bermuda Grass <0.10 kU/L (Class 0); G006-IgE Timothy Grass <0.10 kU/L (Class 0); I006-IgE Cockroach, German <0.10 kU/L (Class 0); Immunoglobulin E, Total 11 IU/mL (6-495); M001-IgE Penicillium chrysogen <0.10 kU/L (Class 0); M002-IgE Cladosporium herbarum <0.10 kU/L (Class 0); M003-IgE Aspergillus fumigatus <0.10 kU/L (Class 0); M006-IgE Alternaria alternata <0.10 kU/L (Class 0); T001-IgE Maple/Box Elder <0.10 kU/L (Class 0); T003-IgE Common Silver Birch <0.10 kU/L (Class 0); T006-IgE Cedar, Mountain <0.10 kU/L (Class 0); T007-IgE Oak, White <0.10 kU/L (Class 0); T008-IgE Elm, American <0.10 kU/L (Class 0); T010-IgE Walnut <0.10 kU/L (Class 0); T011-IgE Maple Leaf Sycamore <0.10 kU/L (Class 0); T014-IgE Cottonwood <0.10 kU/L (Class 0); T015-IgE Ash, White <0.10 kU/L (Class 0); T022-IgE Pecan, Hickory <0.10 kU/L (Class 0); T070-IgE White Mulberry <0.10 kU/L (Class 0); W001-IgE Ragweed, Short <0.10 kU/L (Class 0); W011-IgE Thistle, Russian <0.10 kU/L (Class 0); W014-IgE Pigweed, Common <0.10 kU/L (Class 0); W018-IgE Sheep Sorrel <0.10 kU/L (Class 0)
== END 2021-11-30 12:26 | disposition home or self-care (01) | DRG 193 ==
LOC: ER 17:48 → 2ND 18:23
PROVIDERS: Internal Medicine Pulmonary Disease; Admitting Provider Emergency Medicine; Emergency Provider Emergency Medicine; Visit Provider Emergency Medicine
DX: J18.9 Pneumonia, unspecified organism (principal); I50.31 Acute diastolic (congestive) heart failure; J96.01 Acute respiratory failure with hypoxia; Z68.43 Body mass index [BMI] 50.0-59.9, adult; I11.0 Hypertensive heart disease with heart failure; E66.01 Morbid (severe) obesity due to excess calories; E78.5 Hyperlipidemia, unspecified; Z86.16 Personal history of COVID-19
CPT/HCPCS: 36415; 71045; 71046; 71275; 80048; 80053; 82785; 82803; 83605; 83880; 84443; 84484; 85025; 85610; 85730; 86003; 86140; 86331; 86602; 86606; 86609; 87070; 87205; 87486; 87581; 87632; 87798; 93005; 93306; 94640; 99285; C9803; J0696; Q9967; U0003; U0005

== ENCOUNTER 2023-10-27 10:42 | Outpatient (CLI) | payer OTHER, SELFPAY ==
--- NOTE | 2023-10-27 10:46 | MM_ITS ---
PROCEDURE INFORMATION: Exam: MG Bilateral Screening 3D Mammography Exam date and time: 10/27/2023 10:48 AM Age: 48 years old Clinical indication: Screening. No family history of breast cancer. TECHNIQUE: Imaging protocol: Bilateral Screening tomosynthesis and 2D mammography including computer-aided detection (CAD) when performed. COMPARISON: 1. MG MM MAMMO DIGITAL ADELA SCREEN BILAT 09/01/2022 8:38 AM 2. MG MM MAMMO DIGITAL ADELA SCREEN BILAT 07/22/2021 11:06 AM 3. MG MM MAMMO DIGITAL SCREENING W CAD BILAT 03/06/2019 7:18 AM 4. MG DMSB DIG MAMM-SCREEN RODOLFO W/CAD 10/07/2016 10:35 AM FINDINGS: MAMMOGRAPHY: Breast composition: The breasts are almost entirely fatty. Mass: None. Architectural distortion: None. Calcifications: No suspicious calcifications. Asymmetric density: None. Skin thickening: None. Axillary adenopathy: None. IMPRESSION: No mammographic evidence of malignancy. Annual screening is recommended unless otherwise clinically indicated. ASSESSMENT: BI-RADS Category 1: Negative
== END 2023-10-27 23:59 ==
LOC: RAD 10:42
PROVIDERS: PCP Family Medicine; Visit Provider Family Medicine
DX: Z12.31 Encounter for screening mammogram for malignant neoplasm of breast (principal)
CPT/HCPCS: 77063; 77067

== ENCOUNTER 2025-03-07 08:15 | Outpatient (CLI) | payer BC, SELFPAY ==
--- NOTE | 2025-03-07 08:17 | MM_ITS ---
PROCEDURE INFORMATION: Exam: MG Bilateral Screening 3D Mammography Exam date and time: 03/07/2025 8:20 AM Age: 49 years old Clinical indication: Screening. No family history of breast cancer. TECHNIQUE: Imaging protocol: Bilateral Screening tomosynthesis and 2D mammography including computer-aided detection (CAD) when performed. COMPARISON: 1. MG MM DIG SCREENING MAMM BI W/CAD 10/27/2023 10:48 AM 2. MG MM MAMMO DIGITAL ADELA SCREEN BILAT 09/01/2022 8:38 AM 3. MG MM MAMMO DIGITAL ADELA SCREEN BILAT 07/22/2021 11:06 AM 4. MG MM MAMMO DIGITAL SCREENING W CAD BILAT 03/06/2019 7:18 AM FINDINGS: MAMMOGRAPHY: Breast composition: The breasts are almost entirely fatty. Mass: None. Architectural distortion: None. Calcifications: No suspicious calcifications. Asymmetric density: None. Skin thickening: None. Axillary adenopathy: None. IMPRESSION: No mammographic evidence of malignancy. Annual screening is recommended unless otherwise clinically indicated. ASSESSMENT: BI-RADS Category 1: Negative.
== END 2025-03-07 23:59 | disposition home or self-care (01) ==
LOC: RAD 08:16
PROVIDERS: PCP Family Medicine; Visit Provider Family Medicine
DX: Z12.31 Encounter for screening mammogram for malignant neoplasm of breast (principal)
CPT/HCPCS: 77063; 77067